=== PATIENT | male | born 1945 | race Caucasian/White ===

== ENCOUNTER 2018-12-03 22:38 | Emergency (ER) | payer MEDICARE, OTHER ==
--- NOTE | 2018-12-03 23:26 | EDM.PDOC ---
ED HPI GENERAL MEDICAL PROBLEM - General Chief Complaint: Chest Pain Stated Complaint: TIGHT CHEST/ARMS SORE FOR A FEW DAYS Time Seen by Provider: 12/03/18 23:12 Source of Information: Reports: Patient, Family History Limitations: Reports: No Limitations - History of Present Illness INITIAL COMMENTS - FREE TEXT/NARRATIVE: 72-year-old male attends the ED with intermittent central chest pains tonight that are relieved by burping and belching. This started about 1900 hrs. and is occurred 3 or 4 times tonight. It has never lasted more than 5 or 6 minutes. He also has bilateral shoulder pain that is been present for the last 23 days and perhaps even longer. Worse as of late. He has a history of coronary disease and is wondering if this was not heart related. 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 He is currently on aspirin daily not on Plavix. He does get heartburn once in a while but does not use Tums or Rolaids and has never been on Prilosec. No known injuries to either shoulder. At the time I seen him he had no chest pain. No shoulder pain either. Both pains come and go for no rhyme or reason. Onset: Today Onset Date: 12/03/18 Onset Time: 19:00 Duration: Hour(s):, Intermittent, Waxing/Waning Location: Reports: Chest, Upper Extremity, Left (Central chest discomfort with pressure relieved by burping and belching. Pain under the acromioclavicular joint), Upper Extremity, Right ( off and on for the last 3 or 4 days under the acromioclavicular joint off and on for the last 3 or 4 days ) Quality: Reports: Ache (Shoulder pain is a dull aching discomfort in can come on at rest or with activity. Seems to be somewhat better after activity.), Pressure (Chest pain was more of a pressure discomfort relieved by belching.) Severity: Mild Improves with: Reports: Other (Chest pain was relieved by burping and belching.) Worsens with: Reports: None Context: Denies: Activity, Exercise, Lifting, Sick Contact, Trauma, Other Associated Symptoms: Reports: Chest Pain, Shortness of Breath. Denies: No Other Symptoms (See history of present illness), Confusion, Cough, cough w sputum, Diaphoresis, Fever/Chills, Headaches, Loss of Appetite, Malaise, Nausea/ Vomiting, Rash, Seizure, Syncope, Weakness Treatments [employer]: Reports: Other (see below) (None.) - Related Data Allergies Allergy/AdvReac Type Severity Reaction Status Date / Time No Known Allergies Allergy Verified 12/03/18 22:45 Home Meds: Home Meds Aspirin 81 mg PO BEDTIME 12/03/18 [History] Lisinopril/Hydrochlorothiazide [Lisinopril-Hctz 20-12.5 mg Tab] 1 each PO DAILY 12/03/18 [History] Metoprolol Succinate [Toprol XL 100mg] 100 mg PO DAILY 12/03/18 [History] Spironolactone [Aldactone] 25 mg PO DAILY 12/03/18 [History] atorvaSTATin [Lipitor] 40 mg PO BEDTIME 12/03/18 [History] Past Medical History Cardiovascular History: Reports: Hypertension, DC, Stents (Has 3 stents in total. I believe the first 2 were placed in 2009 with an inferior wall myocardial infarction. In 2011 yet 1 more stent placed. He is no longer on Plavix.) Genitourinary History: Reports: Renal Calculus - Past Surgical History Cardiovascular Surgical History: Reports: Coronary Artery Stent Social & Family History - Tobacco Use Smoking Status *Q: Never Smoker - Recreational Drug Use Recreational Drug Use: No - Living Situation & Occupation Living situation: Reports: Occupation: Employed (Self-employed) ED ROS GENERAL - Review of Systems Review Of Systems: See Below Constitutional: Denies: Fever, Chills, Malaise, Weakness, Fatigue, Decreased Appetite, Weight Loss HEENT: Reports: Glasses Respiratory: Denies: Shortness of Breath, Wheezing, Pleuritic Chest Pain, Cough , Sputum Cardiovascular: Reports: Chest Pain, Blood Pressure Problem (See history of present illness), Dyspnea on Exertion (Mild lower extremities), Edema. Denies: Claudication, Lightheadedness, Orthopnea ( chronic hypertension), Palpitations ( sometimes) Endocrine: Reports: No Symptoms GI/Abdominal: Reports: Other : Reports: Frequency (Occasional problems with gastroesophageal reflux.), Other (Nocturia 2) Musculoskeletal: Reports: Back Pain, Joint Pain (Biceps and shoulders at present ) Skin: Reports: No Symptoms Neurological: Reports: No Symptoms Psychiatric: Reports: No Symptoms Hematologic/Lymphatic: Reports: No Symptoms Immunologic: Reports: No Symptoms ED EXAM, GENERAL - Physical Exam Exam: See Below Exam Limited By: No Limitations General Appearance: Alert, WD/WN, No Apparent Distress, Other (Vital signs are stable although blood pressure is mildly elevated at 145/94. O2 sats are 97% with respiratory to 16. He is afebrile) Eye Exam: Bilateral Eye: Normal Inspection Throat/Mouth: Normal Inspection, Normal Lips, Normal Oropharynx Head: Atraumatic, Normocephalic Neck: Normal Inspection, Supple. No: Carotid Bruit, Lymphadenopathy (L), Lymphadenopathy (R) Respiratory/Chest: No Respiratory Distress, Lungs Clear, Normal Breath Sounds, No Accessory Muscle Use Cardiovascular: Normal Peripheral Pulses, Regular Rate, Rhythm, No Gallop, No Murmur, No Rub Peripheral Pulses: 2+: Posterior Tibial (L), Posterior Tibial (R), Dorsalis Pedis (L), Dorsalis Pedis (R) GI/Abdominal: Normal Bowel Sounds, Soft, Non-Tender, No Organomegaly, No Distention, No Abnormal Bruit, No Mass, Pelvis Stable, Other Extremities: Normal Inspection, Normal Range of Motion, Non-Tender, Pedal Edema , Other (Examination of the shoulders reveal that he has full range of motion of both shoulders. He has some mild pain when the arm is fully abducted at 90 to the shoulder in the distribution of the supraspinatus tendon suggestive of supraspinatus bursitis. He has no definitive rotator cuff tear or deficit. This was bilaterally.) Neurological: Alert, Oriented (Mild pedal edema to the lower ankles bilaterally. ), CN II-XII Intact, Normal Cognition Psychiatric: Normal Affect, Normal Mood Skin Exam: Warm, Dry, Intact, Normal Color, No Rash Course - Vital Signs Last Recorded V/S: Last Vital Signs Temp 37.1 C 12/03/18 22:42 Pulse 76 12/03/18 22:42 Resp 16 12/03/18 22:42 BP 145/94 H 12/03/18 22:42 Pulse Ox 97 12/03/18 22:42 - Orders/Labs/Meds Orders: Active Orders 24 hr Category Date Time Status EKG Documentation Completion [RC] ASDIRECTED Care 12/03/18 22:50 Active Chest 1V Frontal [CR] Stat Exams 12/03/18 23:24 Taken PRO B-TYPE NATRIUR PEPT,BNPPRO [CHEM] Stat Lab 12/03/18 22:48 Received EKG 12 Lead [EK] Stat Ther 12/03/18 22:50 Ordered Labs: Laboratory Tests 12/03/18 12/03/18 12/03/18 Range/Units 22:48 22:48 22:48 WBC 8.59 (4.23-9.07) K/mm3 RBC 4.57 L (4.63-6.08) M/mm3 Hgb 13.9 (13.7-17.5) gm/L Hct 42.6 (40.1-51.0) % MCV 93.2 H (79.0-92.2) fl MCH 30.4 (25.7-32.2) pg MCHC 32.6 (32.2-35.5) g/dl RDW Std Deviation 42.9 (35.1-43.9) fL Plt Count 213 (163-337) K/mm3 MPV 9.2 L (9.4-12.3) fl Neut % (Auto) 50.0 (34.0-67.9) % Lymph % (Auto) 35.4 (21.8-53.1) % [place] % (Auto) 11.3 (5.3-12.2) % Eos % (Auto) 2.6 (0.8-7.0) Baso % (Auto) 0.5 (0.1-1.2) % Neut # (Auto) 4.30 (1.78-5.38) K/mm3 Lymph # (Auto) 3.04 (1.32-3.57) K/mm3 [place] # (Auto) 0.97 H (0.30-0.82) K/mm3 Eos # (Auto) 0.22 (0.04-0.54) K/mm3 Baso # (Auto) 0.04 (0.01-0.08) K/mm3 D-Dimer, Quantitative 0.44 (0.19-0.50) mg/L Sodium 145 (136-145) mEq/L Potassium 3.6 (3.5-5.1) mEq/L Chloride 103 (98-107) mEq/L Carbon Dioxide 34 H (21-32) mEq/L Anion Gap 11.6 (5-15) BUN 24 H (7-18) mg/dL Creatinine 1.4 H (0.7-1.3) mg/dL Est Cr Clr Drug Dosing 49.25 mL/min Estimated GFR (MDRD) 50 (>60) mL/min BUN/Creatinine Ratio 17.1 (14-18) Glucose 90 (83-115) mg/dL Calcium 9.3 (8.5-10.1) mg/dL Magnesium (1.8-2.4) mg/dl Total Bilirubin 0.2 (0.2-1.0) mg/dL AST 24 (15-37) U/L ALT 38 (16-63) U/L Alkaline Phosphatase 81 (46-116) U/L CK-MB (CK-2) (0-3.6) ng/ml Troponin I 0.025 (0.00-0.056) ng/mL Total Protein 7.4 (6.4-8.2) g/dl Albumin 3.4 (3.4-5.0) g/dl Globulin 4.0 gm/dL Albumin/Globulin Ratio 0.9 L (1-2) 12/03/18 Range/Units 22:48 WBC (4.23-9.07) K/mm3 RBC (4.63-6.08) M/mm3 Hgb (13.7-17.5) gm/L Hct (40.1-51.0) % MCV (79.0-92.2) fl MCH (25.7-32.2) pg MCHC (32.2-35.5) g/dl RDW Std Deviation (35.1-43.9) fL Plt Count (163-337) K/mm3 MPV (9.4-12.3) fl Neut % (Auto) (34.0-67.9) % Lymph % (Auto) (21.8-53.1) % [place] % (Auto) (5.3-12.2) % Eos % (Auto) (0.8-7.0) Baso % (Auto) (0.1-1.2) % Neut # (Auto) (1.78-5.38) K/mm3 Lymph # (Auto) (1.32-3.57) K/mm3 [place] # (Auto) (0.30-0.82) K/mm3 Eos # (Auto) (0.04-0.54) K/mm3 Baso # (Auto) (0.01-0.08) K/mm3 D-Dimer, Quantitative (0.19-0.50) mg/L Sodium (136-145) mEq/L Potassium (3.5-5.1) mEq/L Chloride (98-107) mEq/L Carbon Dioxide (21-32) mEq/L Anion Gap (5-15) BUN (7-18) mg/dL Creatinine (0.7-1.3) mg/dL Est Cr Clr Drug Dosing mL/min Estimated GFR (MDRD) (>60) mL/min BUN/Creatinine Ratio (14-18) Glucose (83-115) mg/dL Calcium (8.5-10.1) mg/dL Magnesium 2.0 (1.8-2.4) mg/dl Total Bilirubin (0.2-1.0) mg/dL AST (15-37) U/L ALT (16-63) U/L Alkaline Phosphatase (46-116) U/L CK-MB (CK-2) 2.1 (0-3.6) ng/ml Troponin I (0.00-0.056) ng/mL Total Protein (6.4-8.2) g/dl Albumin (3.4-5.0) g/dl Globulin gm/dL Albumin/Globulin Ratio (1-2) - Radiology Interpretation Free Text/Narrative:: 72-year-old male attends the ED due to intermittent central chest pains that he was experiencing off and on since about 1900 hrs. this evening. These were relieved by burping and belching. At the time ice seen him he was pain-free. Is also complaining of bilateral shoulder pain underneath the acromioclavicular joints bilaterally. This pain to comes and goes for the last 2-3 days. Denies being short of breath or having any cough fever or chills. He has known coronary disease having had myocardial infarctions in the past and has [address] He is on aspirin only. No Plavix. Examination was completely normal. Heart is sinus no murmurs identified lungs are clear examination was shoulders suggests that he has mild bilateral supraspinatus bursitis. Benign abdominal examination. ECG done shows sinus rhythm at 59/m. He is a left axis deviation of -20. There is decreased voltage in both limb and precordial leads. He denies ever being a smoker. There is a Q-wave in lead V1 and near Q-wave in V2 i.e. initial poor R-wave progression possibly representing an old anteroseptal myocardial infarction. There is poor R-wave progression there is also Q waves in 3 and aVF compatible with an old inferior wall myocardial infarction. QTC is moderately prolonged. T wave flattening noted in aVL 3 aVF and leads V4 to V6. Plan 1 view chest x-ray to be done in routine labs. Clinically I do not feel he has any cardiac problems at this time I suspect he had esophageal spasm since the pain was relieved by burping and belching. - Re-Assessments/Exams Free Text/Narrative Re-Assessment/Exam: 12/03/18 23:56 chest x-ray reveals mild cardiomegaly. Slightly hyperinflated lung sin bilaterally. Increased vasculature at the right hilar area but no signs of any diffuse vascular congestion.Labs reveal a white count of 8.59 with automated differential with 50% neutrophils. Hemoglobin is 13.9 with hematocrit of 42.6. MCV is 93.2 mildly elevated. Platelet count is 213,000. D-dimer is 0.44. Sodium 145 with a potassium of 3.6. Chloride 103 with a bicarbonate of 34. And a gap is 11.6. BUN is 24 with a creatinine of 1.4. Glucose is 90. Calcium is 9.3. Magnesium is 2.0. Liver function is normal. CK-MB fraction is 2.1. Troponin I is less than 0.025. Total protein is 7.4 with no pigment fraction of 3.4. BNP is un available tonight due to lab problems. 12/04/18 00:06 I have discussed the findings of the lab tests and the chest x- ray the patient. Reassured that his chest pains were not cardiac in origin. More likely that he is suffering esophageal spasm likely due to reflux at nighttime. Less likely is a small hiatal hernia causing similar symptoms. Discussed treatment options such as Prilosec, Pepcid or Zofran if symptoms persist. Similarly if his shoulder pains persist he may benefit from subacromial bursal injections with corticosteroids to relieve pain and discomfort. Departure - Departure Time of Disposition: 00:06 Disposition: Home, Self-Care 01 Condition: Fair Clinical Impression: Non-cardiac chest pain, Esophageal spasm, Subacromial bursitis of left shoulder joint, Subacromial bursitis of right shoulder joint, Esophagitis Instructions: Esophagitis Referrals: PCP,None [Primary Care Provider] - Forms: ED Department Discharge Additional Instructions: Evaluation in the emergency room tonight in regards to central chest discomfort coming intermittently for the last several hours. Improved by burping and belching. Associated bilateral shoulder pain underneath the acromioclavicular joints bilaterally. Is predated the chest pain by 2 or 3 days and has been a problem intermittently in the past. History of coronary disease with previous inferior wall myocardial infarction and stent placement. Chest x-ray proved to be normal tonight. ECG shows evidence of an old inferior wall myocardial infraction but nothing new or anything to suggest ischemia or lack of blood supply to the heart. Lab work was completely normal. Reveal no sign of blood clot in the lung and normal heart markers. Suspected bilateral shoulder pain is due to subacromial bursitis which is due to tendinitis which is age-related. If it is problematic due to use Aleve 2 tablets every 8 hours which will take the inflammation away. I suspect her chest pain was related to esophageal spasm since it got better with burping and belching. This is suspicious that she will may be refluxing during the night when you are sleeping in the lower part of the food pipe is inflamed causing it to go into spasm intermittently. If this reoccurs then I would suggest purchasing Pepcid or Zantac and taking it once nightly to help reduce acid production and reflux. No changes in medications are indicated at this time. No restrictions in activity. With personal care physician if any further problem's occur - My Orders Last 24 Hours: My Active Orders 12/03/18 22:48 PRO B-TYPE NATRIUR PEPT,BNPPRO [CHEM] Stat 12/03/18 22:50 EKG Documentation Completion [RC] ASDIRECTED EKG 12 Lead [EK] Stat 12/03/18 23:24 Chest 1V Frontal [CR] Stat - Assessment/Plan Last 24 Hours: My Active Orders 12/03/18 22:48 PRO B-TYPE NATRIUR PEPT,BNPPRO [CHEM] Stat 12/03/18 22:50 EKG Documentation Completion [RC] ASDIRECTED EKG 12 Lead [EK] Stat 12/03/18 23:24 Chest 1V Frontal [CR] Stat
--- NOTE | 2018-12-04 06:58 | CR ---
Chest: Frontal view of the chest was obtained. Comparison: No prior chest x-ray. Heart size at the upper limits of normal. Upper mediastinum is within normal limits. Lungs are clear with no acute parenchymal change. Bony structures are grossly intact. Impression: 1. Nothing acute is seen on frontal chest x-ray. Diagnostic code #1
== END 2018-12-04 00:15 | disposition home or self-care (01) ==
LOC: JD.ED 22:38
DX: K22.4 Dyskinesia of esophagus (principal); M75.52 Bursitis of left shoulder; K20.9 Esophagitis, unspecified; R07.9 Chest pain, unspecified; I25.2 Old myocardial infarction; Z79.82 Long term (current) use of aspirin; Z79.899 Other long term (current) drug therapy
CPT/HCPCS: 36415; 71045; 71045-26; 80053; 82553; 83735; 83880; 84484; 85025; 85379; 93005; 93010; 99285; 99285-25

== ENCOUNTER 2021-08-23 19:10 | Emergency (ER) | payer MEDICARE, OTHER ==
[2021-08-23] MEDS ORDERED: Sodium Chloride 0.9% 1,000 ML IV ONE (20:42)
[2021-08-23] MEDS ORDERED: Sodium Chloride 0.9% 500 ML IV ONE (20:52)
== END 2021-08-23 22:03 | disposition home or self-care (01) ==
LOC: JD.ED 19:10
DX: I95.1 Orthostatic hypotension (principal); I25.10 Atherosclerotic heart disease of native coronary artery without angina pectoris; I11.0 Hypertensive heart disease with heart failure; I50.9 Heart failure, unspecified; E78.00 Pure hypercholesterolemia, unspecified; E66.9 Obesity, unspecified; Z68.30 Body mass index [BMI] 30.0-30.9, adult; Z79.82 Long term (current) use of aspirin; Z79.899 Other long term (current) drug therapy; Z95.1 Presence of aortocoronary bypass graft
CPT/HCPCS: 36415; 71046; 80048; 83735; 84484; 85025; 85379; 93005; 99284; J7030

== ENCOUNTER 2024-02-24 03:40 | Emergency (ER) | payer MEDICARE, OTHER ==
[2024-02-24] MEDS: Morphine 4 MG/ML Syringe IVPUSH ONE (04:19)
[2024-02-24 04:20] LABS: BASOPHILS ABSOLUTE AUTO 0.1 K/mm3 (0.0-0.2); BASOPHILS PERCENT AUTO 0.5 % (0.0-1.0); EOSINOPHILS ABSOLUTE AUTO 0.1 K/mm3 (0.0-0.4); HEMATOCRIT 48.5 % (42.0-52.0); HEMOGLOBIN 15.9 gm/dl (14.0-18.0); IMMATURE GRAN ABSOLUTE AUTO 0.06 K/mm3 (0.00-0.05); IMMATURE GRAN PERCENT AUTO 0.5 % (0.0-0.4); LYMPHOCYTES ABSOLUTE AUTO 2.1 K/mm3 (1.0-4.8); MEAN CORPUSCULAR HEMOGLOBIN 31.6 pg (28.0-32.0); MEAN CORPUSCULAR HGB CONC 32.8 g/dl (32.0-36.0); MEAN CORPUSCULAR VOLUME 96.4 fl (83.0-99.0); MEAN PLATELET VOLUME 9.3 fl (9.4-12.4); MONOCYTES ABSOLUTE AUTO 0.9 K/mm3 (0.0-0.8); NEUTROPHILS ABSOLUTE AUTO 9.7 K/mm3 (1.8-7.7); PLATELET COUNT,PLT 195 K/mm3 (150-400); RED BLOOD CELL COUNT 5.03 M/mm3 (4.52-5.90)
[2024-02-24] MEDS: Sodium Chloride 0.9% 500 ML IV ONE (04:20)
[2024-02-24] MEDS: Sodium Chloride 0.9% 10 ML Syringe FLUSH PRN (04:22)
[2024-02-24] MEDS: Ondansetron 4 MG/2 ML SDV IVPUSH ONE (04:27)
[2024-02-24 04:30] LABS: A/G RATIO 0.9 (1-2); ALBUMIN 3.7 g/dl (3.4-5.0); ANION GAP 9.6 (5-15); BILIRUBIN TOTAL 1.5 mg/dL (0.2-1.0); BUN/CREATININE RATIO 13.8 (14-18); CALCIUM 9.2 mg/dL (8.5-10.1); CREATININE 1.6 mg/dL (0.7-1.3); EST CRCL DRUG DOSING (CG) 39.29 mL/min; POTASSIUM,K 4.6 mEq/L (3.5-5.1); PROTEIN TOTAL,TP 7.8 g/dl (6.4-8.2)
[2024-02-24] MEDS: Iopamidol 612 MG/ML 100 ML Bottle IVPUSH ONE (04:53)
[2024-02-24 07:16] LABS: APPEARANCE,URINE CLEAR (Clear); BILIRUBIN,URINE NEGATIVE (Negative); COLOR,URINE YELLOW (Yellow); GLUCOSE,URINE NEGATIVE (Negative); KETONES,URINE NEGATIVE (Negative); LEUKOCYTE ESTERASE,URINE NEGATIVE (Negative); NITRITE,URINE NEGATIVE (Negative); OCCULT BLOOD,URINE NEGATIVE (Negative); PH,URINE 7.5 (5.0-8.0); PROTEIN,URINE 1+ (Negative)
[2024-02-24] MEDS: Ondansetron 4 MG/2 ML SDV ONE (07:18)
[2024-02-24 07:34] LABS: BACTERIA,URINE FEW /hpf (FEW); EPITHELIAL CELLS,URINE 0-5 /hpf (0-5); MUCUS,URINE MODERATE /hpf (FEW); RBC,URINE 0-5 /hpf (0-5); WBC,URINE 0-5 /hpf (0-5)
== END 2024-02-24 08:05 | disposition home or self-care (01) ==
LOC: JD.ED 03:40
DX: R10.84 Generalized abdominal pain (principal); I11.0 Hypertensive heart disease with heart failure; I50.9 Heart failure, unspecified; I25.10 Atherosclerotic heart disease of native coronary artery without angina pectoris; E78.00 Pure hypercholesterolemia, unspecified; E66.9 Obesity, unspecified; Z90.49 Acquired absence of other specified parts of digestive tract; Z95.5 Presence of coronary angioplasty implant and graft; Z79.82 Long term (current) use of aspirin; Z79.899 Other long term (current) drug therapy; Z68.30 Body mass index [BMI] 30.0-30.9, adult
CPT/HCPCS: 36415; 74177; 76705; 80053; 81001; 83690; 83735; 84484; 85025; 93005; 96361; 96374; 96375; 99284; J2270; J2405; J3490; J7030; Q9967